=== PATIENT | female | born 1945 | race Caucasian/White ===

== ENCOUNTER 2022-05-20 11:10 | Day surgery (SDC) | payer OTHER ==
[2022-05-18 13:19] LABS: ANION GAP 5 (5-15); CALCIUM 8.8 mg/dL (8.4-11.0); CHLORIDE 109 mmol/L (98-107); CREATININE 0.74 mg/dL (0.55-1.30); GLUCOSE 110 mg/dL (70-99); POTASSIUM 4.3 mmol/L (3.5-5.1); UREA NITROGEN, BLOOD 12 mg/dL (8-21)
[2022-05-18 13:24] LABS: BILIRUBIN,URINE NEGATIVE (NEGATIVE); BLOOD, URINE NEGATIVE (NEGATIVE); COLOR,URINE YELLOW (YELLOW); GLUCOSE,URINE NEGATIVE (NEGATIVE); KETONES,URINE NEGATIVE (NEGATIVE); LEUKOCYTE ESTERASE ,URINE TRACE (NEGATIVE); NITRITE, URINE NEGATIVE (NEGATIVE); PROTEIN URINE NEGATIVE (NEGATIVE); UROBILINOGEN,URINE 0.2 (0.2-1.0)
[2022-05-18 13:27] LABS: PROTHROMBIN TIME 10.1 SECS (9.5-12.5)
[2022-05-18 13:29] LABS: BASOPHILS # (AUTO) 0.1 K/uL (0.0-0.2); BASOPHILS % (AUTO) 1.5 % (0.0-2.0); EOSINOPHILS # (AUTO) 0.1 K/uL (0.0-0.4); EOSINOPHILS % (AUTO) 2.5 % (0.0-4.0); HEMATOCRIT 38.1 % (36-48); HEMOGLOBIN 12.3 g/dL (12.0-16.0); LYMPHOCYTES # (AUTO) 1.2 K/uL (1.0-5.5); LYMPHOCYTES % (AUTO) 28.6 % (20.5-51.5); MEAN CORPUSCULAR HEMOGLOBIN 28 pg (27-31); MEAN CORPUSCULAR HGB CONC 32 % (32-36); MEAN CORPUSCULAR VOLUME 86 fL (79.0-98.0); MONOCYTES # (AUTO) 0.5 K/uL (0.0-1.0); MONOCYTES % (AUTO) 11.3 % (1.7-9.3); NEUTROPHILS # (AUTO) 2.3 K/uL (1.8-7.7); NEUTROPHILS % (AUTO) 56.1 % (40.0-70.0); PLATELET COUNT (AUTO) 112 K/uL (130-430); RED BLOOD CELL COUNT(AUTO) 4.45 MIL/uL (4.2-6.2); RED CELL DISTRIBUTION WIDTH 15.4 % (9.0-15.0); WHITE BLOOD COUNT (AUTO) 4.2 K/uL (4.8-10.8)
[2022-05-18 13:33] LABS: CLARITY/URINE SLIGHTLY HAZY (CLEAR)
[2022-05-18 13:51] LABS: BACTERIA,URINE MODERATE /HPF (None Seen); RBC,URINE 0-3 /HPF (0-3); WBC,URINE 0-3 /HPF (0-3)
[~2022-05-20] VITALS: Ht 154.9 cm; Wt 85.0 kg
[2022-05-20] VITALS: BP_SYST 154
[2022-05-20] MEDS ORDERED: CEFAZOLIN 2 GM IVPB PREMIX 50 ML IV ONE ×2 (12:59→13:00)
[2022-05-20] MEDS ORDERED: PROPOFOL 200MG/ 20ML VIAL (DIPRIVAN) IV ONE (13:18)
[2022-05-20] MEDS ORDERED: KETOROLAC TROMETHAMINE 30 MG VIAL ONE (13:18)
[2022-05-20] MEDS ORDERED: DESFLURANE 15 MIN GAS INH ONE (13:18)
[2022-05-20] MEDS ORDERED: MIDAZOLAM HCL 2 MG/2 ML VIAL (VERSED) ONE ×2 (13:18→15:37)
[2022-05-20] MEDS ORDERED: fentaNYL CITRATE/PF 100 MCG/2 ML AMP ONE (13:18)
[2022-05-20] MEDS ORDERED: DEXAMETHASONE SOD PHOSPHATE 4 MG/ML VIAL ONE (13:18)
[2022-05-20] MEDS ORDERED: LR 1,000 ML IV.SOLN IV ONE (13:18)
[2022-05-20] MEDS ORDERED: ROCURONIUM BROMIDE 10 MG/ML (ZEMURON) ONE (13:18)
[2022-05-20] MEDS ORDERED: LIDOCAINE 1% 10 MG/ML, 20 ML MDV ONE (13:18)
[2022-05-20] MEDS ORDERED: SUGAMMADEX SODIUM 200 MG/2 ML VIAL IV ONE (13:18)
[2022-05-20] MEDS ORDERED: ONDANSETRON HCL 4 MG/2 ML VIAL ONE (13:18)
[2022-05-20] MEDS ORDERED: MEPERIDINE HCL/PF 25 MG/ML DISP.SYRIN IVP PRN (14:00)
[2022-05-20] MEDS ORDERED: hydrALAZINE HCL 20 MG/ML VIAL IVP PRN (14:00)
[2022-05-20] MEDS ORDERED: LABETALOL 100 MG/ 20ML VIAL IVP PRN (14:00)
[2022-05-20] MEDS ORDERED: METOCLOPRAMIDE HCL 10 MG/2 ML VIAL IVP PRN (14:00)
[2022-05-20] MEDS ORDERED: MIDAZOLAM HCL 2 MG/2 ML VIAL (VERSED) IVP PRN (14:00)
[2022-05-20] MEDS ORDERED: HYDROmorphone 1 MG/ML INJ. CARTRIDGE IVP PRN (14:00)
[2022-05-20] MEDS ORDERED: ACETAMINOPHEN I.V. 1000 MG 100 ML IV ONE (14:01)
[2022-05-20] MEDS: HYDROmorphone 1 MG/ML INJ. CARTRIDGE IVP PRN ×2 (15:18→15:30)
[2022-05-20 16:45] VITALS: BP_SYST 134
[2022-05-20] MEDS ORDERED: METO25TA3 PO (19:32)
[2022-05-20] MEDS ORDERED: IRBE150T48 PO (19:32)
[2022-05-20] MEDS ORDERED: SYN50 PO (19:57)
[2022-05-20] MEDS ORDERED: ISOS30TA85 PO (19:57)
[2022-05-20] MEDS ORDERED: LIP20 PO (19:57)
[2022-05-20] MEDS ORDERED: PANT20TA2 PO (19:57)
[2022-05-20] MEDS ORDERED: ASPI-1393 PO (19:57)
[2022-05-20] MEDS ORDERED: ARA20 PO (19:57)
[2022-05-20 20:00] VITALS: BP_SYST 161
[2022-05-20] MEDS ORDERED: HYDROcodone/ACETAMIN 7.5-325 MG TAB PO PRN (20:00)
[2022-05-20] MEDS ORDERED: METOPROLOL SUCCINATE 25 MG TAB.SR.24H (TOPROL XL) PO ONE (20:30)
[2022-05-20] MEDS ORDERED: ATORVASTATIN 20 MG TABLET PO SCH (21:00)
[2022-05-20] MEDS: ASPIRIN 81 MG TABLET(ECOTRIN) PO SCH (21:24)
[2022-05-21] VITALS: BP_SYST 154
[2022-05-21] MEDS: LR 1,000 ML IV SCH ×3 (01:30→09:15)
[2022-05-21] MEDS ORDERED: LEVOTHYROXINE SODIUM 0.05 MG TABLET PO SCH (07:00)
[2022-05-21 08:05] VITALS: BP_SYST 158
[2022-05-21] MEDS ORDERED: METOPROLOL SUCCINATE 25 MG TAB.SR.24H (TOPROL XL) PO SCH (09:00)
[2022-05-21] MEDS ORDERED: ISOSORBIDE MONONITRATE 30 MG TAB.ER.24H PO SCH (09:00)
[2022-05-21] MEDS: ASPIRIN 81 MG TABLET(ECOTRIN) PO SCH (09:10)
[2022-05-21 12:00] VITALS: BP_SYST 148
[2022-05-21 15:52] VITALS: BP_SYST 145
[2022-05-21 16:00] VITALS: BP_SYST 145
== END 2022-05-21 17:25 | disposition home or self-care (01) ==
LOC: SDS 11:10 → SMU 11:11 → STU 13:53 → SDS 05-21 17:25
PROVIDERS: ATTEND Orthopaedic Surgery
DX: S86.012A Strain of left Achilles tendon, initial encounter (principal); Z79.01 Long term (current) use of anticoagulants; Z20.822 Contact with and (suspected) exposure to COVID-19; Z88.2 Allergy status to sulfonamides; X58.XXXA Exposure to other specified factors, initial encounter; Y93.89 Activity, other specified; Y92.89 Other specified places as the place of occurrence of the external cause; Y99.8 Other external cause status
CPT/HCPCS: 15769; 80048; 81000; 85025; 85610; 85730; 36415 ×2; 27654; 87426; 97162; U0003; J3490; J0690; J1100; J1885; J2001; J3465; J2405; J2704; J3010; J1170; J7120; J0131

== ENCOUNTER 2023-02-26 14:02 | Outpatient (CLI) | payer OTHER, MEDICARE ==
[~2023-02-26 14:02] MED LIST: ARA20 PO; ASPI-1393 PO; IRBE150T48 PO; ISOS30TA85 PO; LIP20 PO; METO25TA3 PO; PANT20TA2 PO; SYN50 PO
== END 2023-02-26 20:57 | disposition home or self-care (01) ==
LOC: SMI 14:02
PROVIDERS: ATTEND Psychiatry & Neurology Neurology
DX: M47.26 Other spondylosis with radiculopathy, lumbar region (principal); M43.17 Spondylolisthesis, lumbosacral region; M51.17 Intervertebral disc disorders with radiculopathy, lumbosacral region; M54.50 Low back pain, unspecified; N28.1 Cyst of kidney, acquired; I77.819 Aortic ectasia, unspecified site; M41.86 Other forms of scoliosis, lumbar region
CPT/HCPCS: 72148